=== PATIENT | male | born 2000 | race Asian ===

== ENCOUNTER 2021-08-21 12:21 | Emergency (ER) | payer OTHER ==
[~2021-08-21] VITALS: Ht 177.8 cm; Wt 86.9 kg
[2021-08-21 16:51] VITALS: BP 141/70
[2021-08-21] MEDS ORDERED: LORA-622 PO (17:15)
[2021-08-21] MEDS ORDERED: xyzal PO (17:15)
[2021-08-21] MEDS ORDERED: BENA25CA4 PO (17:15)
[2021-08-21] MEDS ORDERED: AZEL0.05 OU (17:59)
== END 2021-08-21 18:19 | disposition home or self-care (01) ==
LOC: M ED 12:21
DX: H10.45 Other chronic allergic conjunctivitis (principal)